=== PATIENT | male | born 1985 | race Caucasian/White ===

== ENCOUNTER 2022-01-20 19:54 | Emergency (ER) | payer OTHER, SELFPAY ==
[2022-01-20 20:07] VITALS: BP 128/85; PULSE 75; RESP 18; TEMP 36.4; O2SAT 99
--- NOTE | 2022-01-20 20:33 | ED.ANIMALBIT ---
HPI - Animal Bite General Chief Complaint: Animal Bite Stated Complaint: bat exposure, unknown if bitten Time Seen by Provider: 01/20/22 20:15 History of Present Illness HPI narrative: 36-year-old male here for evaluation after exposure to a bat earlier today. Patient states that him and his were sleeping in bed, when they woke up and noticed that a bat was flying around the room. They are unsure how long the bat was there, or if he got bit or exposed. He contacted the health department who recommended coming to the ED for the rabies immunoglobulin and vaccine. He is currently asymptomatic. Related Data Home Medications Medication Instructions Recorded Confirmed No Home Medications 01/20/22 01/20/22 Allergies Allergy/AdvReac Type Severity Reaction Status Date / Time No Known Allergies Allergy Verified 01/20/22 20:10 Review of Systems Review of Systems: Gen.: Denies fevers or chills Eyes: Denies eye pain or visual change ENT: Denies congestion Respiratory: Denies shortness of breath or cough CV: Denies chest pain or palpitations GI: Denies abdominal pain nausea, emesis or diarrhea denies burning, urgency, frequency or hematuria Musculoskeletal: Denies back pain or muscle pain Neuro: Denies numbness, tingling, weakness or focal weakness Skin: Denies rash Except as documented, all other systems reviewed and negative Exam Narrative: APPEARANCE: Well appearing, no pain in distress, well-nourished. Head: Normocephalic and atraumatic. EYES: PERRLA/EOMI, conjunctivae clear NOSE: No nasal drainage EARS: External ear normal in appearance THROAT: Oropharynx is clear. Mucous membranes are moist. NECK: Supple. No adenopathy, no masses. RESPIRATORY: Airway patent, respirations nonlabored. Clear to auscultation bilaterally, no rales, rhonchi, wheezing. CARDIOVASCULAR: Regular rate and rhythm without murmurs, rubs, or gallops. ABDOMINAL: Normoactive bowel sounds. Soft, nontender, nondistended. No rebound tenderness or guarding. MUSCULOSKELETAL: Extremities are warm and well-perfused. Moves all extremities well. No edema. NEURO: Normal speech. No focal neurologic deficits. SKIN: Skin is warm and dry. No rashes. PSYCHIATRIC: Normal affect/mood. Course Vital Signs Vital signs: Vital Signs Temperature 97.5 F L 01/20/22 20:07 Pulse Rate 75 01/20/22 20:07 Respiratory Rate 18 01/20/22 20:07 Blood Pressure 128/85 01/20/22 20:07 Pulse Oximetry 99 01/20/22 20:07 Oxygen Delivery Room Air 01/20/22 20:07 Temperature 97.5 F L 01/20/22 20:07 Pulse Rate 63 01/20/22 22:37 Respiratory Rate 16 01/20/22 22:37 Blood Pressure 111/81 01/20/22 22:37 Pulse Oximetry 100 01/20/22 22:37 Oxygen Delivery Room Air 01/20/22 20:07 MDM - Animal Bite MDM Narrative Medical decision making narrative: 36 year old male here for evaluation and rabies vaccine/immunoglobulin per recommendation of health department after exposure to a bat earlier today. Vital signs normal, non-toxic appearing. Vaccine/immuneglobulin administered; provided anticipatory guidance regarding next steps in series. Bat was not quarantined. He was given reasons to return to the ED and he voiced understanding. Discharge Plan Discharge Clinical Impression: Exposure to bat without known bite Patient Disposition: Home, Self-Care Condition: Stable Instructions: Antibiotic Form Additional Instructions: You were administered the rabies vaccine in the emergency department today. Our infectious disease nurse will be in contact with you to arrange the subsequent doses of the vaccine, he will need to be administered days 3, 7, and 14. Please take the prescription with you to get these vaccines. Prescriptions: No Action No Home Medications Follow-up/Referrals: PHYSICIAN NOT ON STAFF,NONSTAFF [Primary Care Provider] -
[2022-01-20] MEDS: RABIES IMMUNE GLOBULIN/PF 1,500 UNITS/5 ML VIAL 2140 UNITS IM (21:53)
[2022-01-20] MEDS: RABIES VACCINE (RABAVERT) 2.5 UNITS VIAL IM (21:54)
[2022-01-20 22:26] VITALS: BP 91/55; PULSE 52; RESP 20; O2SAT 100
[2022-01-20 22:37] VITALS: BP 111/81; PULSE 63; RESP 16; O2SAT 100
== END 2022-01-20 22:39 | disposition home or self-care (01) ==
PROVIDERS: Emergency Provider General Practice
DX: Z20.3 Contact with and (suspected) exposure to rabies (principal); Z29.14 Encounter for prophylactic rabies immune globulin; Z23 Encounter for immunization
CPT/HCPCS: 90471; 90675; 96372; 99283; 90375

== ENCOUNTER 2022-02-03 07:42 | Outpatient (RCR) | payer OTHER, SELFPAY | END 2022-04-23 23:59 | disposition home or self-care (01) | LOC: ANHVASCINF 07:42 | PROVIDERS: Visit Provider Physician Assistant | DX: Z20.3 Contact with and (suspected) exposure to rabies (principal) | CPT/HCPCS: 90471; 90675 ==